=== PATIENT | male | born 1955 | race Caucasian/White ===

== ENCOUNTER 2018-03-03 16:07 | Emergency (ER) | payer SELFPAY ==
[~2018-03-03] VITALS: Ht 167.6 cm; Wt 75.3 kg
[2018-03-03 16:07] VITALS: BP 124/84
--- NOTE | 2018-03-03 17:08 | NUR ---
PATIENT WAS PROVIDED WITH THE RESOURCES ([facility]).
== END 2018-03-03 17:13 | disposition home or self-care (01) ==
LOC: ER 16:09
DX: Z00.00 Encounter for general adult medical examination without abnormal findings (principal); Z86.73 Personal history of transient ischemic attack (TIA), and cerebral infarction without residual deficits; Z85.05 Personal history of malignant neoplasm of liver
CPT/HCPCS: 99283; A4606; Z7610